=== PATIENT | female | born 1935 | race Caucasian/White ===

== ENCOUNTER 2019-04-03 21:24 | Emergency (ER) | payer MEDICARE, BC ==
[~2019-04-03] VITALS: Ht 152.4 cm; Wt 72.6 kg
[~2019-04-03 21:24] MED LIST: LISINOPRIL; PRAVASTATIN; ROBAXIN; SERTRALINE
--- OUTSIDE RECORDS SUMMARY | 2019-04-03 21:29 | XMS REPORT | Clinical Summary ---
Author Author Sean [facility] Organization [facility] Address Unknown Phone Unavailable Care Team Providers Care Rink Rat Name Role Phone Erick Casarez MD PCP Allergies Comments Active Allergy Reactions Severity Noted Date Very thin skin...tape pulls skin off Adhesive Tape-Silicones Other (See 03/24/2016 Comments) Pt reports " I have hallucinations and I was out of it for 3 days" Roberto Hope Rn Hydromorphone Other (See 05/05/2018 Comments) Medications End Date Status Medication Sig Dispensed Refills Start Date Active METOPROLOL SUCCINATE ORAL Take 25 mg by 0 mouth 2 (two) times a day. Active temazepam (RESTORIL) 15 Take 15 mg by 0 mg capsule mouth nightly as needed for sleep. Active sertraline (ZOLOFT) 100 Take 100 mg 0 MG tablet by mouth nightly. Active ascorbic acid (vitamin C) Take 1,000 mg 0 1000 MG tablet by mouth daily. Active FERROUS FUMARATE (IRON Take 25 mg by 0 ORAL) mouth daily. Active acetaminophen (TYLENOL) Take 325 mg 0 325 MG tablet by mouth every 6 (six) hours as needed for mild pain. 05/15/2018 acetaminophen-codeine Take 1 tablet 30 tablet 0 (TYLENOL WITH CODEINE #3) by mouth 8 300-30 mg per tablet every 4 (four) hours as needed for moderate pain for up to 10 days. 05/12/2018 cephalexin (KEFLEX) 500 Take 1 28 capsule 0 MG capsule capsule (500 8 mg total) by mouth 3 (three) times a day for 7 days. 05/13/2018 predniSONE (DELTASONE) 10 Take 4 tabs 20 tablet 0 mg tablet pack daily x 2 8 days, 3 tabs daily x 2 days, 2 tabs daily x 2 days, 1 tabs daily x 2 days. Active Problems Problem Noted Date Cervical radiculopathy 03/31/2016 Encounters Care Team Description Date Type Specialty Philippe Mathis MD IMPLANTATION, PROSTHESIS, COCHLEAR 05/05/2018 Surgery Plastic Surgery Tacchi, Connie Leal, GYM ATTENDANT 05/05/2018 Anesthesia Plastic Surgery Event Philippe Mathis MD 05/05/2018 Hospital Plastic Surgery Encounter after 04/02/2018 Family History Medical History Relation Name Comments Diabetes Paternal Grandmother Hypertension Sister Relation Name Status Comments Paternal Grandmother Sister Social History Date Tobacco Use Types Packs/Day Years Used Never Smoker Smokeless Tobacco: Never Used Tobacco Cessation: Counseling Given: No Alcohol Use Drinks/Week oz/Week Comments No Sex Assigned at Date Recorded Not on file Industry Job Start Date Occupation Not on file Not on file Not on file Travel End Travel History Travel Start No recent travel history available. Last Filed Vital Signs Time Taken Vital Sign Reading 05/05/2018 12:25 PM CDT Blood Pressure 153/70 05/05/2018 12:25 PM CDT Pulse 80 05/05/2018 12:15 PM CDT Temperature 37.1 C (98.7 F) 05/05/2018 12:15 PM CDT Respiratory Rate 22 05/05/2018 12:15 PM CDT Oxygen Saturation 93% - Inhaled Oxygen - Concentration 05/05/2018 6:43 AM CDT Weight 71.6 kg (157 lb 12.8 oz) 05/05/2018 6:43 AM CDT Height 152.4 cm (5') 05/05/2018 6:43 AM CDT Body Mass Index 30.82 Plan of Treatment Health Maintenance Due Date Last Done Comments SHINGLES VACCINES (#1) 1986 65+ PNEUMOCOCCAL VACCINE 2001 (1 of 2 - PCV13) INFLUENZA VACCINE 04/07/2019 Implants Device Identifier Shelf Expiration Date Model / Serial / Lot Implanted Type Area Manufactur er 11/10/2018 [id number] / [id number] / [id number] Chip Canc Allograft Leader [facility] Human N/A: N/A MUSCULOSKE 30cc 0.1-4mm - [id number] - Tissue LETAL [id number] Implants TRANSPLANT Implanted: Qty: 1 on 03/31/2016 by Rylan Smith MD 12/06/2017 [id number] / / [id number] Kit Bone Grft Lmbr Tprd 5.6ml Med Human N/A: N/A MEDTRONIC Infuse - [id number] Tissue SPINAL AND Implanted: Qty: 1 on 03/31/2016 by Implants BIOLOGICS Rylan Danielson MD 08/26/2020 [id number] / / N/A Cable Ortho Loop Double With 2crimp Spinal Posterior: DEPUY Ti Shante - [id number] Implants Spine Cervical SPINE Implanted: Qty: 1 on 03/31/2016 by Rylan Danielson MD [id number] / / Screw Oct 4.5x6mm Mountaineer - Spinal Posterior: DEPUY [id number] Implants Spine Cervical SPINE Implanted: Qty: 2 on 03/31/2016 by Rylan Danielson MD 03/03/2017 [id number] / / [id number] Cable Ortho Loop Double With 2crimp Spinal N/A: N/A DEPUY Ti Shante - [id number] Implants SPINE Implanted: Qty: 1 on 03/31/2016 by Rylan Danielson MD [id number] / / Screw Oct Med-Lat 3.5x20mm Spinal Posterior: DEPUY Mountaineer - [id number] Implants Spine Cervical SPINE Implanted: Qty: 2 on 03/31/2016 by Rylan Danielson MD [id number] / / Screw Spinal Fvrd Ang 3.5x14mm Spinal Posterior: DEPUY [employer]aineer - [id number] Implants Spine Cervical SPINE Implanted: Qty: 4 on 03/31/2016 by Rylan Danielson MD [id number] / / Screw Spinal Inr [place] Mountaineer Spinal Posterior: DEPUY - [id number] Implants Spine Cervical SPINE Implanted: Qty: 6 on 03/31/2016 by Rylan Danielson MD [id number] / / Screw Oct Inr Mountaineer - Spinal Posterior: DEPUY [id number] Implants Spine Cervical SPINE Implanted: Qty: 2 on 03/31/2016 by Rylan Danielson MD [id number] / / Plate Oc Med 37mm Mountaineer - Spinal Posterior: DEPUY [id number] Implants Spine Cervical SPINE Implanted: Qty: 1 on 03/31/2016 by Rylan Danielson MD 08/26/2020 [id number] / / N/A Oliverio Oct P-Bnt [id number] Mountaineer Spinal Posterior: DEPUY - [id number] Implants Spine Cervical SPINE Implanted: Qty: 2 on 03/31/2016 by Rylan Danielson MD 03/23/2020 [id number] / [id number] / N/A Cochlear Nucleus [id number] Cochlear Surgical Right: Ear COCHLEAR Implant With Slim Straight Implants - [place] Electrode Facial and Implanted: Qty: 1 on 05/05/2018 by Ear/Nose/T Philippe Mathis MD hroat (ENT) Procedures Comments Procedure Name Priority Date/Time Associated Diagnosis VA AN ELECTIVE Routine 05/05/2018 ENDOTRACHEAL AIRWAY 8:21 AM CDT Procedure Note - Connie Perez, GYM ATTENDANT - 05/05/2018 8:21 AM CDT Airway Date/Time: 05/05/2018 8:10 AM Performed by: CONNIE PEREZ Authorized by: LISA LITTLE Location: OR Urgency: Elective Difficult Airway: No Anesthesio logist: LISA LITTLE Resident/C RNA/AA: CONNIE PEREZ Performed by: resident/C RNA/AA Preoxygena dawson with 100% O2: Yes Mask Ventilatio n: Assisted mask Final Airway Type: Endotrache al airway Final Endotrache al Airway: ETT Cuffed: Yes Technique Used: Video laryngosco py (Glidescop e size 3 blade) Devices/Me thods Used in Placement: Intubatin g stylet Insertion Site: Oral ETT Size (mm): 7.0 Measured from: Teeth ETT to Teeth (cm): 21 Placement Verified by: CO2 detection, direct visualizat ion and equal breath sounds Laryngosco pic view: Grade I - full view of glottis Number of Attempts at Approach: 2 Eyes taped immediatel y after LOC; Easy mask ventilatio n with 8mm OPA; x1 attempt with Major 2 grade 3 view; x1 attempt with glidescope ; grade iia view; atraumatic intubation through open vocal cords; (+) chest rise& ETCO2; oral structures intact as per pre op IMPLANTATION, PROSTHESIS, 05/05/2018 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 POC sodium 142 135 - 148 mmol/L [facility] DEPARTMENT OF PATHOLOGY AND GENOMIC MEDICINE POC potassium 4.6 3.5 - 5.0 mmol/L [facility] DEPARTMENT OF PATHOLOGY AND GENOMIC MEDICINE POC hematocrit 40 37 - 47 % [facility] DEPARTMENT Comment: OF PATHOLOGY Meter ID: [id number] AND GENOMIC Computer Forensic Specialist: Stephon PICKETT POC glucose 83 65 - 99 mg/dL [facility] DEPARTMENT OF PATHOLOGY AND GENOMIC MEDICINE Specimen Performing Organization Address City/[facility] [place] Phone Number [facility] DEPARTMENT OF [address] [place] [address] PATHOLOGY AND GENOMIC MEDICINE * ECG 12 lead (05/05/2018 7:17 AM CDT) Ventricular 64 [facility] rate Atrial rate 64 [facility] VA interval 166 [facility] QRSD interval 78 [facility] QT interval 406 [facility] QTC interval 418 [facility] P axis 1 33 [facility] QRS axis 1 34 [facility] T wave axis 33 [facility] MUSE EKG impression Normal sinus rhythm-Possible [facility] MUSE Left atrial enlargement-Borderline ECG-In automated comparison with ECG of 05-MAY-2018 07:17,-No significant change was found- Specimen Performing Organization Address City/[facility]/Zipcode Phone Number [facility] [address] [place] [address] after 04/02/2018 Insurance Type Payer Benefit Subscriber ID Effective Phone Address Plan / Dates Group Medicare MEDICARE MEDICARE xxxxxxxxxxx 2001-P [place], [place] A AND resent [place] B [facility] xxxxxxxxx 2016-P [place] HMO BCBS [place] xxxxxxxxxxxx 2017-P CT [place] resent AREA/HMO BLUE ESSENTIALS Advance Directives Patient has advance care planning documents on file. For more information, quentin bermudez contact: Sean Giles [address] [place] [address]
--- OUTSIDE RECORDS SUMMARY | 2019-04-03 21:29 | XMS REPORT ---
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 Allergies, Adverse Reactions, Alerts Allergy Name Allergy Type Status Severity Reaction(s) Onset Date Inactive Date Treating Clinician Comments adhesive DA Active SD 2019-03-29 00:00:00 hydromorphone DA Active 2019-03-29 00:00:00 epinephrine DA Active SV 2019-03-28 00:00:00 codeine DA Active SD 2019-03-15 00:00:00 epinephrine DA Active SV 2019-03-15 00:00:00 adhesive DA Active SD 2019-03-15 00:00:00 hydromorphone DA Active SV 2019-03-15 00:00:00 codeine DA Active SD 2017-10-22 00:00:00 epinephrine DA Active SV 2017-10-22 00:00:00 adhesive DA Active SD 2017-10-22 00:00:00 hydromorphone DA Active SV 2017-10-22 00:00:00 Medications This patient has no known medications. Results Test Description Test Time Test Comments Text Results Atomic Results Result Comments - XR FLUORO FOR SPINE INJ 2019-03-30 11:07:00 Patient Name: KIMBERLY SUNG Unit No: [id number] EXAMS: CPT CODE: [id number] XR FLUORO FOR SPINE INJ 00274 CERVICAL FACET DIAGNOSTIC INJECTION REFERRAL PHYSICIAN: None Preoperative diagnosis: Cervicalgia Postoperative diagnosis:Symptomatic degenerative bilateral C4-5, right C6-C7 and right C7-T1 degenerative facets Procedure performed: Fluoroscopically guided needle localization of the bilateral C4-5, right C6-7 and right C7-T1 facets with arthrograms and diagnostic injection of local anesthetic and steroid. Findings:Moderate to marked degeneration was seen at all joints with moderate joint hypertrophy bilaterally at C4-5. Aspiration was negative. Provocation was negative. Anesthetic response was positive with the patient noting relief of her cervicalgia. Preinjection VAS 5/10. Postinjection VAS 0/10. Steroid response pending follow-up. Estimated blood loss: Minimal Anesthesia: TIVA Complications: None Details of procedure: After obtaining stable vital signs, informed consent and IV access, with no contraindications to proceeding, the patient was taken to the operating room and placed in a prone position with all extremities padded and appropriate monitors placed. The patient was sterilely prepped and draped over the cervical spine. Using fluoroscopic visualization the insertion sites were marked for a posterior paravertebral approaches and using standard technique, a 26-gauge needle was inserted into each joint capsule without paresthesias. Aspiration was negative. Isovue-300 contrast 0.2 mL was injected to produce each arthrogram. There were no signs of intravascular or intrathecal uptake. Bupivacaine 0.75% 0.5 mL with lidocaine 4% 0.25 mL and triamcinolone 10 mg was then injected incrementally with frequent negative aspirations at each joint. There were no signs of intravascular or intrathecal uptake. The patient's vital signs remained stable. All needles were removed and the patient was taken to the PACU in good condition. at 1107 Reported and signed by: Oz Schwartz M.D. CC: Oz Schwartz MD Technologist: TOREY NIETO RT(R) Transcribed D/ (1107) Russel.MTRylan [facility] NAME: KIMBERLY SUNG [facility] [address] [facility] PHYS: Oz Cisse MD [place], [place] [address] : 1935 AGE: 83 SEX: F LOC: CHRIS PHONE #: [phone] EXAM DATE: 03/29/2019 STATUS: [facility] FAX #: [phone] RAD #: D/C DT PAGE 1 Signed Report Patient Name: KIMBERLY SUNG Unit No: [id number] EXAMS: CPT CODE: [id number] XR FLUORO FOR SPINE INJ 48490 <Continued> Orig Print D/T: S: 03/30/2019 (1110) [facility] NAME: KIMBERLY SUNG [address] [facility] PHYS: Oz Cisse MD [place], [place] [address] : 1935 AGE: 83 SEX: F LOC: CHRIS PHONE #: [phone] EXAM DATE: 03/29/2019 [place] [facility] [place] #: [phone] RAD #: D/C DT PAGE 2 Signed Report - XR FLUORO FOR SPINE INJ 2019-03-15 19:34:00 Patient Name: KIMBERLY SUNG Unit No: [id number] EXAMS: CPT CODE: [id number] XR FLUORO FOR SPINE INJ 18905 LUMBAR DISCOGRAM AND INTRADISCAL INJECTION REFERRING PHYSICIAN: None PREOPERATIVE DIAGNOSIS: Discogenic Low Back Pain POSTOPERATIVE DIAGNOSIS: Symptomatic markedly degenerative discs above prior L5-S1 fusion PROCEDURE PERFORMED: 1. Fluoroscopically guided needle localization of the L1-2, L2-3, L3-4 and L4-5 discs with provocative discography and therapeutic intradiscal injection of local anesthetic and steroid. FINDINGS: Diffuse annular degeneration was seen at all levels with left convex scoliosis and marked loss of disc space height. Provocation with injection was partially concordant for usual pain at L2-3, L3-4 and L4-5. Anesthetic response was positive with the patient noting relief of her low back pain. Preinjection VAS 8/10. Postinjection VAS 0/10. Steroid response pending follow-up. ANTIBIOTIC: Cefazolin IV and intradiscal. ESTIMATED BLOOD LOSS: Minimal ANESTHESIA: TIVA COMPLICATIONS: None DETAILS OF PROCEDURE: After obtaining stable vital signs, informed consent and IV access, with no contraindications to proceeding, the patient received preoperative antibiotics and was taken to the fluoroscopy suite where the patient was placed in a prone position with all extremities padded and appropriate monitors placed. The patient was sterilely prepped and draped over the lumbosacral spine. Under fluoroscopic visualization the selected discs were visualized and the insertion sites were marked for paramedian approaches. Using standard double needle no- touch technique, a 20 gauge spinal introducer needle was advanced to the level of the facets and a curved 25-gauge needle was then passed through the introducer and advanced into the center of each disc without paresthesias. Isovue 300 contrast 0.2 ml with [id number] mg/mL 0.2 ml was then injected to produce each discogram. Bupivacaine 0.75% 0.25 mL with lidocaine 4% 0.5 ml with triamcinolone 20 mg was then injected, provocation was recorded and the needles were removed. There were no signs of intravascular or intrathecal uptake. The patient's vital signs remained stable. The patient was taken to the PACU in good condition. [facility] NAME: KIMBERLY SUNG MEGHAN [address] [facility] PHYS: Oz Cisse MD [place], [place] [address] : 1935 AGE: 83 SEX: F LOC: CHRIS PHONE #: [phone] EXAM DATE: 03/15/2019 [place] [facility] [place] #: [phone] RAD #: D/C DT PAGE 1 Signed Report (CONTINUED) Patient Name: KIMBERLY SUNG MEGHAN Unit No: [id number] EXAMS: CPT CODE: [id number] XR FLUORO FOR SPINE INJ 70671 <Continued> at 1934 Reported and signed by: Oz Schwartz M.D. CC: Technologist: Carol Case(R) Transcribed D/ (1933) Russel.[facility] NAME: ANA LILIAKIMBERLY [facility]RISTIANSON [address] [facility] PHYS: Oz Cisse MD [place], [place] [address] : 1935 AGE: 83 SEX: F LOC: CHRIS PHONE #: [phone] EXAM DATE: 03/15/2019 [place] [facility] [place] #: [phone] RAD #: D/C DT PAGE 2 Signed Report Patient Name: KIMBERLY SUNG Unit No: [id number] EXAMS: CPT CODE: [id number] XR FLUORO FOR SPINE INJ 80495 <Continued> Orig Print D/T: S: 03/15/2019 (1935) [facility] NAME: KIMBERLY SUNG [address] [facility] PHYS: Oz Cisse MD [place], [place] [address] : 1935 AGE: 83 SEX: F LOC: Y.LILIAN PHONE #: [phone] EXAM DATE: 03/15/2019 STATUS: REG [facility] FAX #: [phone] RAD #: D/C DT PAGE 3 Signed Report - XR L-SPINE W/BEND VIEW 2019-03-08 11:00:00 Patient Name: KIMBERLY SUNG Unit No: [id number] EXAMS: CPT CODE: [id number] XR L-SPINE W/BEND VIEW 53385 COMPARISON: Concurrent CT. IMAGES PROVIDED: 7 FINDINGS: Marked leftward curvature of the lumbar spine is centered at L2. L5-S1 posterior instrumented fusion is present without gross complication. Grade 1-2 spondylolisthesis of L5-S1 is noted as well as grade 1 spondylolisthesis of L4-L5. No abnormal motion is seen with flexion/extension. Marked disc degeneration is greatest at L2-L3 and L3-L4. Extensive lumbar facet hypertrophy. Moderate bilateral cingulate joint degenerative change. Hip joints are maintained. Cholecystectomy clips are present. IMPRESSION: Postoperative lumbar spine with advanced multilevel spondylosis. No evidence of dynamic instability. at 1100 Reported and signed by: Pedro Dickson M.D. CC: Oz Schwartz MD Technologist: Cindy James, RT.(R) Transcribed D/ (1099) Giovany [facility] NAME: KIMBERLY SUNG [address] [facility] PHYS: Oz Cisse MD : 1935 AGE: 83 SEX: F [place], [place] [address] LOC: Y.MRI PHONE #: [phone] EXAM DATE: 03/03/2019 STATUS: DEP [facility] FAX #: [phone] RAD #: D/C DT PAGE 1 Signed Report Patient Name: KIMBERLY SUNG Unit No: [id number] EXAMS: CPT CODE: [id number] XR L-SPINE W/BEND VIEW 08571 <Continued> Orig Print D/T: S: 03/08/2019 (1103) [facility] NAME: KIMBERLY SUNG [address] [facility] PHYS: Oz Cisse MD : 1935 AGE: 83 SEX: F [place], [place] [address] LOC: Y.MRI PHONE #: [phone] EXAM DATE: 03/03/2019 STATUS: [facility] FAX #: [phone] RAD #: D/C DT PAGE 2 Signed Report NM BONE SPECT SCAN 2019-03-03 16:00:55 CLINICAL INDICATION: M51.36 Other intervertebral disc degeneration, lumbar ybrgggT22.817MODALITY: Discovery NM/CT 670TECHNIQUE: 25 mCi Tc 99m MDP are injected IV. After a suitable time delay, whole body imaging images were obtained. SPECT imaging of the cervical and lumbar spine is performed with computer and physician-assisted 2-D and 3-D reconstruction. Co-registered low dose limited diagnostic CT images are obtained at the level of SPECT imaging.Computed Tomography Dose Index: 5.44 mGy.FINDINGS:COMPARISON: Fusion CT exam.CT Comments: none.Symmetric bilateral renal function is observed.Symmetric arthritic uptake is noted at the shoulders, moderate bilateral wrist uptake is seen. Moderate - severe activity is noted at the left patellofemoral joint. Mild to moderate bilateral medial knee com partment, left lateral knee compartment, right ankle activity is otherwise most conspicuous.SPECT CT fusion imaging of the lumbar spine is reviewed. Moderate, most intense uptake is demonstrated at the central and left L3-4 intervertebral disc extending down the left lateral L4 vertebral body margin. Moderate levoscoliosis of the lumbar spine is seen. Global fusion is noted at L5-S1. Moderate uptake is also noted at the left L4-[address] fusion imaging of the cervical spine demonstrates moderate midline uptake to be present at C4-5, C5-6 with mild to moderate uptake present at the C3-4 level. Surgical hardware consistent with posterior fusion is present. Moderate symmetric uptake is noted at the C4-5 facet, moderate - severe uptake is present at the right C6-7 facet and right C7-T1 costovertebral junction.IMPRESSION:See comments above.PQRS 147: 3570F - CT L-SPINE W/O CONTRAST 2019-03-03 15:20:00 Patient Name: KIMBERLY SUNG Unit No: [id number] EXAMS: CPT CODE: [id number] CT L-SPINE W/O CONTRAST 30696 DIAGNOSIS: 1. At L1-2 there is endplate spur formation and disc bulging lateralizing 4 mm into the left neural foramen. Moderate to marked right foraminal narrowing is seen with moderate left-sided stenosis. Mild narrowing of the canal is seen. 2. At L2-3 there is endplate spur formation and disc bulging with moderate to marked foraminal narrowing and mild left-sided stenosis. Moderate canal stenosis is seen with facet and ligamentum flavum hypertrophic and degenerative change. 3. At L3-4 there is endplate spur formation and disc bulging with marked left foraminal narrowing and mild right-sided stenosis. Mild narrowing of the canal is seen with decompression. 4. At L4-5 there is solid left posterior lateral fusion without right-sided effusion. A postsurgical grade 1 spondylolisthesis is seen without a focal disc abnormality. Marked left foraminal narrowing is seen without right-sided stenosis. Decompression of the canal has been performed. 5. At L5-S1 there is a postsurgical grade 2 spondylolisthesis with moderate left foraminal narrowing and moderate to marked right-sided stenosis. Pedicles screws are present without evidence for fusion. The patient is status post discectomy and graft. Decompression of the canal has been performed. COMMENT: COMPARISON: No prior exams available. Scans were performed from L1 to S1 and reconstructions were obtained. Postsurgical changes are as noted. Disc configurations are as described. Spondylitic changes are as noted. There is a scoliosis convex left. The description these findings assumes a normal count of 5 lumbar type vertebra. at 1520 Reported and signed by: Philippe Velazquez MD CC: Oz Schwartz MD Technologist: Curt Forte,R T(R) CTDI: DLP: 0 Trnscrpt: 03/03/2019 (1330) DylonJCL [facility] NAME: KIMBERLY SUNG [address] [facility] PHYS: Oz Cisse MD : 1935 AGE: 83 SEX: F [place] [address] LOC: Y.MRI PHONE #: [phone] EXAM DATE: 03/03/2019 STATUS: REG CLI FAX #: [phone] RAD #: D/C DT PAGE 1 Signed Report Patient Name: KIMBERLY SUNG Unit No: [id number] EXAMS: CPT CODE: [id number] CT L-SPINE W/O CONTRAST 17457 <Continued> Orig Print D/T: S: 03/03/2019 (1701) [facility] NAME: KIMBERLY SUNG [address] [facility] PHYS: Oz Cisse MD : 1935 AGE: 83 SEX: F [place] [address] LOC: Y.MRI PHONE #: [phone] EXAM DATE: 03/03/2019 STATUS: REG CLI FAX #: [phone] RAD #: D/C DT PAGE 2 Signed Report NM BONE SPECT SCAN Addendum created at 08/07/2017 1:14:43 PM:Addendum:Described cervical uptake is most prominent at the right C5-6, left C6-7 and right C7-T1 (approximate) facet joints.Addendum by: Davon Herman [facility]: dx: m54.2, m47.817, cervicalgia, spondyls w/o, myelopathy or radiculopath of the lumbosacral region, chronic pain, broken ribs and rt foot beforeMODALITY: [email or web address] dual head gamma cameraTECHNIQUE: 25 mCi Tc 99m MDP are injected IV. After a suitable time delay, whole body imaging images were obtained. SPECT imaging of the lumbar spine is performed with computer and physician-assisted 2-D and 3-D reconstruction.FINDINGS:COMPARISON: Lumbar spine series performed 07/27/2017.Moderate levoscoliosis is centered at L2. There are five lumbar type vertebra present. Grade 2 spondylolisthesis of L5 is visible. Trans pedicle screws are noted with global fusion at L5-S1. There is multilevel disc space narrowing observed. Moderate spondylosis is noted at L2-3, L3-4 intervertebral discs. Surgical clips are noted within the upper abdomen. Vacuum disc noted at L3-4.Symmetric bilateral renal function is observed.Mild arthritic changes are noted at the acromioclavicular and glenohumeral joints bilaterally. There is moderate - severe uptake projecting over the lower cervical spine is most prominent right C5-6, left C6-7 and right C7-T1 (approximate). There is moderately intense uptake noted at the left patellofemoral joint. Mild to moderate uptake is seen at the medial compartment right knee and right ankle/calcaneus.SPECT imaging of the lumbar spine demonstrates mild to moderate right lateral L1-2 intervertebral disc, moderate right lateral L2-3 intervertebral disc, mild to moderate left L3-4 intervertebral disc, moderate left lateral L4-5 intervertebral disc uptake. There is mild to moderate left L4-5 facet localization present. Mild to moderate right L1-2 and right L2-3 facet localization is seen. There is generally increased uptake noted within the SI joints, focal moderate uptake is seen at the left superior SI joint level.
[2019-04-03 22:05] LABS: BASOPHILS % 0.4 % (0.0-1.0); EOSINOPHILS # (AUTO) 0.1 (0.0-0.4); EOSINOPHILS % 0.6 % (0.0-6.0); HEMATOCRIT 41.6 % (34.2-44.1); HEMOGLOBIN 13.8 g/dL (12.0-16.0); LYMPHOCYTES # (AUTO) 1.3 (1.0-3.2); LYMPHOCYTES % 16.9 % (18.0-39.1); MEAN CORPUSCULAR HEMOGLOBIN 32.9 pg (28-32); MEAN CORPUSCULAR HGB CONC 33.2 g/dL (31-35); MEAN CORPUSCULAR VOLUME 99.3 fL (81-99); MONOCYTES # (AUTO) 0.5 (0.2-0.8); MONOCYTES % 6.8 % (4.4-11.3); NEUTROPHILS # (AUTO) 5.9 (2.1-6.9); PLATELET COUNT 160 x10e3/uL (140-360); RED BLOOD COUNT 4.19 x10e6/uL (3.6-5.1); RED CELL DISTRIBUTION WIDTH 14.4 % (11.7-14.4)
[2019-04-03] MEDS ORDERED: DIATRIZOATE MEGL/DIATRIZOA SOD 30 ML BTL PO ONE (22:16)
[2019-04-03 22:22] LABS: BILIRUBIN,URINE NEGATIVE (NEGATIVE); CLARITY,URINE CLEAR (CLEAR); KETONES,URINE NEGATIVE (NEGATIVE); LEUKOCYTE ESTERASE ,URINE TRACE (NEGATIVE); NITRITE,URINE NEGATIVE (NEGATIVE); PROTEIN,URINE DIPSTICK NEGATIVE (NEGATIVE); URINE UROBILINOGEN 0.2 mg/dL (0.2 - 1)
[2019-04-03 22:24] LABS: COLOR,URINE YELLOW (YELLOW)
[2019-04-03] MEDS ORDERED: METOPROLOL TART50 MG PO (22:25)
[2019-04-03] MEDS ORDERED: SERTRALINE HCL100 MG PO (22:25)
[2019-04-03 22:27] LABS: ALANINE AMINOTRANSFERASE 66 IU/L (0-55); ALBUMIN 3.8 g/dL (3.5-5.0); ALBUMIN/GLOBULIN RATIO 1.1 (0.8-2.0); ALKALINE PHOSPHATASE 88 IU/L (40-150); AMYLASE 125 U/L (25-125); ANION GAP 17.5 mmol/L (8-16); BLOOD UREA NITROGEN 29 mg/dL (7-26); BUN/CREATININE RATIO 24 (6-25); CALCIUM 10.3 mg/dL (8.4-10.2); CARBON DIOXIDE 23 mmol/L (22-29); CHLORIDE 105 mmol/L (98-107); CREATINE KINASE 41 IU/L (29-168); CREATININE, SERUM 1.22 mg/dL (0.57-1.11); EST GLOMERULAR FILTRATION RATE 42 ML/MIN (60-); GLUCOSE 105 mg/dL (74-118); LIPASE 90 U/L (8-78); POTASSIUM 4.5 mmol/L (3.5-5.1); SODIUM 141 mmol/L (136-145)
[2019-04-03] MEDS ORDERED: LOSARTAN-HCTZ1 EAC2 PO (22:28)
[2019-04-03] MEDS ORDERED: TIZANIDINE HCL4 MG PO (22:28)
[2019-04-03] MEDS: ONDANSETRON HCL INJ 2MG/ML 2ML 2 MG/ML VIAL IV STA (22:36)
[2019-04-03 22:56] LABS: BACTERIA,URINE MODERATE /HPF; EPITHELIAL CELLS,URINE FEW /LPF; RENAL EPITHELIAL CELLS,URINE FEW; TRANSITIONAL EPI CELLS,URINE FEW
--- NOTE | 2019-04-04 00:21 | Diagnostic Imaging Report ---
EXAM: CT Abdomen and Pelvis WITHOUT contrast INDICATION: ^ABD PAIN,VOMITING ^[id number] ^2315 ^Y COMPARISON: None. TECHNIQUE: Abdomen and pelvis were scanned utilizing a multidetector helical scanner from the lung base to the pubic symphysis without administration of IV contrast. Absence of intravenous contrast decreases sensitivity for detection of focal lesions and vascular pathology. Coronal and sagittal reformations were obtained. Routine protocol was performed. IV CONTRAST: None ORAL CONTRAST: Gastrografin COMPLICATIONS: None RADIATION DOSE: Total DLP: 485.55 mGy*cm Estimated effective dose: (DLP x 0.015 x size factor) mSv CTDIvol has been reviewed. It is below the limits set by the Radiation Protocol Committee (RPC). FINDINGS: LINES and TUBES: None. LOWER THORAX: Bibasilar subsegmental atelectasis. HEPATOBILIARY: Unenhanced liver is unremarkable. No biliary ductal dilation. GALLBLADDER: Surgically absent. SPLEEN: No splenomegaly. PANCREAS: No focal masses or ductal dilatation. ADRENALS: No adrenal nodules KIDNEYS/URETERS: Right nephrectomy. Multiple left renal hypodense lesions as well as an exophytic hyperdense inferior pole lesion which cannot be fully characterized on this unenhanced study, but are probably cysts. GI TRACT: No abnormal distention, wall thickening, or evidence of bowel obstruction. Appendix is absent. Evidence of gastric bypass surgery. PELVIC ORGANS/BLADDER: Hysterectomy. Bladder is unremarkable. Pelvic phleboliths. LYMPH NODES: No lymphadenopathy. VESSELS: Unremarkable. PERITONEUM / RETROPERITONEUM: No free air or fluid. BONES: Lumbar spine scoliosis with multilevel advanced degenerative changes. L5-S1 posterior spinal fusion. Intact hardware. Grade 1 or 2 L5-S1 spondylolisthesis. SOFT TISSUES: Partially seen peripherally calcified bilateral breast implants. Wide neck supraumbilical ventral hernia with neck measuring 8.2 cm (series 2, image 33). A segment of transverse colon partially enters the hernia sac. No evidence of incarceration or bowel obstruction. Bilateral gluteal injection granulomas. Small fat-containing left inguinal hernia. IMPRESSION: 1. Limited study without intravenous contrast. 2. Small but wide neck supraumbilical ventral hernia with a segment of transverse colon, partially extending to the hernia neck. No evidence of incarceration. 3. Recommend nonurgent renal ultrasound for evaluation of the left renal parenchyma. Signed by: Dr. Deondre Cormier MD on 04/04/2019 12:18 AM
[2019-04-04 00:33] VITALS: BP 136/82
== END 2019-04-04 00:45 | disposition home or self-care (01) ==
LOC: ER 21:24
DX: K85.20 Alcohol induced acute pancreatitis without necrosis or infection (principal); K29.20 Alcoholic gastritis without bleeding; I10 Essential (primary) hypertension; E78.5 Hyperlipidemia, unspecified
CPT/HCPCS: 36415; 74176; 80053; 81001; 82150; 82550; 82553; 83690; 84484; 85025; 93005; 96374; 99284; J2405

== ENCOUNTER 2021-04-08 12:20 | Inpatient (IN) | payer MEDICARE, BC ==
[~2021-04-08] VITALS: Ht 154.9 cm; Wt 72.6 kg
[~2021-04-08 12:20] MED LIST changes: +LOSARTAN-HCTZ1 EAC2 PO; +METOPROLOL TART50 MG PO; +SERTRALINE HCL100 MG PO; +TIZANIDINE HCL4 MG PO
[2021-04-08] MEDS ORDERED: SODIUM CHLORIDE 0.9% 500ML 500 ML IV STA (12:40)
[2021-04-08] MEDS ORDERED: ONDANSETRON HCL INJ 2MG/ML 2ML 2 MG/ML VIAL IV STA (12:40)
[2021-04-08 13:18] LABS: BASOPHILS % 0.8 % (0.0-1.0); EOSINOPHILS % 1.1 % (0.0-6.0); HEMATOCRIT 38.5 % (34.2-44.1); HEMOGLOBIN 11.7 g/dL (12.0-16.0); LYMPHOCYTES # (AUTO) 0.8 (1.0-3.2); LYMPHOCYTES % 22.3 % (18.0-39.1); MEAN CORPUSCULAR HEMOGLOBIN 28.1 pg (28-32); MEAN CORPUSCULAR HGB CONC 30.4 g/dL (31-35); MEAN CORPUSCULAR VOLUME 92.3 fL (81-99); MONOCYTES # (AUTO) 0.2 (0.2-0.8); MONOCYTES % 6.5 % (4.4-11.3); NEUTROPHILS # (AUTO) 2.5 (2.1-6.9); NEUTROPHILS % 67.9 % (38.7-80.0); PLATELET COUNT 169 x10e3/uL (140-360); RED BLOOD COUNT 4.17 x10e6/uL (3.6-5.1)
[2021-04-08 13:31] LABS: CLARITY,URINE CLEAR (CLEAR); COLOR,URINE YELLOW (YELLOW); KETONES,URINE 1+ (NEGATIVE); LEUKOCYTE ESTERASE ,URINE NEGATIVE (NEGATIVE); NITRITE,URINE NEGATIVE (NEGATIVE); PROTEIN,URINE DIPSTICK 2+ (NEGATIVE)
[2021-04-08 13:36] LABS: ALBUMIN/GLOBULIN RATIO 1.1 (0.8-2.0); ANION GAP 17.1 mmol/L (8-16); CALCIUM 9.7 mg/dL (8.4-10.2); CREATININE, SERUM 1.04 mg/dL (0.57-1.11); POTASSIUM 4.1 mmol/L (3.5-5.1)
[2021-04-08 13:43] LABS: CREATINE KINASE MB 1.1 ng/mL (0-5.0)
[2021-04-08 13:47] LABS: BACTERIA,URINE FEW /HPF; EPITHELIAL CELLS,URINE FEW /LPF
[2021-04-08] MEDS ORDERED: IOPAMIDOL 370 MG/ML 200 ML INFUS..BTL INJ ONE (13:55)
[2021-04-08] MEDS ORDERED: SODIUM CHLORIDE 0.9% 50ML 50 ML ONE (13:55)
[2021-04-08] MEDS ORDERED: FENTANYL CITRATE/PF 100MCG/2 ML INJ IV ONE ×2 (14:30→16:45)
[2021-04-08] MEDS ORDERED: ONDANSETRON HCL INJ 2MG/ML 2ML 2 MG/ML VIAL IV PRN (15:00)
[2021-04-08] MEDS ORDERED: PIPERACILLIN/TAZOBACTAM 3.375 GM in SODIUM CHLORIDE 0.9% 50ML 50 ML IV ONE (15:00)
[2021-04-08] MEDS ORDERED: SODIUM CHLORIDE FLUSH 10 ML SYR INJ PRN (15:00)
[2021-04-08 20:09] VITALS: BP 173/96
[2021-04-08 20:30] VITALS: BP 173/96
[2021-04-08] MEDS ORDERED: HYDRALAZINE HCL 20 MG/ML VIAL IV PRN (21:30)
[2021-04-08] MEDS ORDERED: CARAFATE1 GM PO (22:04)
[2021-04-08] MEDS ORDERED: PANTOPRAZOLE SO40 MG PO (22:04)
[2021-04-08] MEDS ORDERED: LEVOTHYROXINE50 MCG PO (22:04)
[2021-04-08] MEDS: ACETAMINOPHEN 325 MG TAB PO PRN (23:47)
[2021-04-09] VITALS (7 sets, daily range): BP systolic 128–162; BP diastolic 43–93
[2021-04-09] MEDS: LEVOTHYROXINE SODIUM 50 MCG TAB PO SCH ×2 (03:15→05:39)
[2021-04-09] MEDS: ACETAMINOPHEN 325 MG TAB PO PRN (03:44)
[2021-04-09] MEDS: METOPROLOL TARTRATE 50 MG TAB PO SCH ×3 (08:24→16:29)
[2021-04-09] MEDS: PANTOPRAZOLE SOD 40 MG TABEC PO SCH (08:24)
[2021-04-09] MEDS ORDERED: HYDROMORPHONE 1MG/1ML INJ IV STA (11:46)
[2021-04-09] MEDS ORDERED: HYDROMORPHONE 1MG/1ML INJ IV PRN (12:30)
[2021-04-09] MEDS ORDERED: ONDANSETRON HCL INJ 2MG/ML 2ML 2 MG/ML VIAL IV PRN (12:45)
[2021-04-09] MEDS: SUCRALFATE 1 GM TAB PO SCH ×2 (16:22→16:29)
[2021-04-09] MEDS: SERTRALINE HCL 100 MG TAB PO SCH (20:27)
[2021-04-10] VITALS (10 sets, daily range): BP systolic 126–169; BP diastolic 61–74
[2021-04-10] MEDS: ACETAMINOPHEN 325 MG TAB PO PRN (00:28)
[2021-04-10 01:59] LABS: FERRITIN 13.03 ng/mL (4.63-204.00)
[2021-04-10] MEDS: LEVOTHYROXINE SODIUM 50 MCG TAB PO SCH (06:07)
[2021-04-10] MEDS: SUCRALFATE 1 GM TAB PO SCH ×3 (07:30→17:01)
[2021-04-10] MEDS: PANTOPRAZOLE SOD 40 MG TABEC PO SCH (09:00)
[2021-04-10] MEDS: METOPROLOL TARTRATE 50 MG TAB PO SCH ×2 (09:00→17:02)
[2021-04-10] MEDS ORDERED: CYANOCOBALAMIN INJ 1,000 MCG/ML VIAL IM ONE (14:00)
[2021-04-10] MEDS ORDERED: ONDANSETRON HCL 4 MG ORAL DISINTEGRATING TAB PO PRN (14:15)
[2021-04-10] MEDS ORDERED: LIDOCAINE HCL 2% LOCAL INJ 5 ML SDV VIAL INJ ONE (17:42)
[2021-04-10] MEDS ORDERED: PROPOFOL IV EMULSION 10 MG/ML 20 ML VIAL ONE (17:42)
[2021-04-10] MEDS: SERTRALINE HCL 100 MG TAB PO SCH (20:27)
[2021-04-11] VITALS: BP 149/74
[2021-04-11 04:00] VITALS: BP 155/65
[2021-04-11 04:58] LABS: BASOPHILS % 0.9 % (0.0-1.0); EOSINOPHILS # (AUTO) 0.1 (0.0-0.4); EOSINOPHILS % 4.8 % (0.0-6.0); HEMATOCRIT 32.2 % (34.2-44.1); HEMOGLOBIN 9.6 g/dL (12.0-16.0); LYMPHOCYTES # (AUTO) 0.8 (1.0-3.2); LYMPHOCYTES % 35.2 % (18.0-39.1); MEAN CORPUSCULAR HEMOGLOBIN 28.2 pg (28-32); MEAN CORPUSCULAR HGB CONC 29.8 g/dL (31-35); MEAN CORPUSCULAR VOLUME 94.4 fL (81-99); MONOCYTES # (AUTO) 0.2 (0.2-0.8); MONOCYTES % 8.7 % (4.4-11.3); NEUTROPHILS # (AUTO) 1.1 (2.1-6.9); NEUTROPHILS % 48.7 % (38.7-80.0); PLATELET COUNT 125 x10e3/uL (140-360); RED BLOOD COUNT 3.41 x10e6/uL (3.6-5.1); RED CELL DISTRIBUTION WIDTH 14.8 % (11.7-14.4)
[2021-04-11] MEDS: LEVOTHYROXINE SODIUM 50 MCG TAB PO SCH (05:07)
[2021-04-11 05:37] LABS: ANION GAP 12.5 mmol/L (8-16); CALCIUM 8.4 mg/dL (8.4-10.2); CREATININE, SERUM 0.77 mg/dL (0.57-1.11); MAGNESIUM 1.7 MG/DL (1.3-2.1); PHOSPHORUS 3.1 MG/DL (2.3-4.7); POTASSIUM 3.5 mmol/L (3.5-5.1)
[2021-04-11 08:04] VITALS: BP 149/68
[2021-04-11 08:12] VITALS: BP 149/68
[2021-04-11] MEDS ORDERED: CYANOCOBALAMIN INJ 1,000 MCG/ML VIAL IM SCH (09:00)
[2021-04-11] MEDS: SUCRALFATE 1 GM TAB PO SCH ×2 (09:25→11:58)
[2021-04-11] MEDS: PANTOPRAZOLE SOD 40 MG TABEC PO SCH (09:25)
[2021-04-11] MEDS: METOPROLOL TARTRATE 50 MG TAB PO SCH (09:25)
[2021-04-11 11:55] VITALS: BP 156/69
[2021-04-11] MEDS ORDERED: ONDANSETRON ODT4 MG PO (13:45)
[2021-04-11] MEDS ORDERED: ACETAMINOPHEN325 M1 PO (13:45)
== END 2021-04-11 16:28 | disposition home or self-care (01) | DRG 381 ==
LOC: ER 12:40 → ERHOLD 15:44 → MED/SURG 20:19
PROVIDERS: ADMIT Internal Medicine; ATTEND Internal Medicine
PROC: 0DB68ZX Excision of Stomach, Via Natural or Artificial Opening Endoscopic, Diagnostic (ICD-10-PCS; principal; 2021-04-08)
DX: K28.9 Gastrojejunal ulcer, unspecified as acute or chronic, without hemorrhage or perforation (principal); Q60.0 Renal agenesis, unilateral; E78.5 Hyperlipidemia, unspecified; I10 Essential (primary) hypertension; E03.9 Hypothyroidism, unspecified; M81.0 Age-related osteoporosis without current pathological fracture; Z91.81 History of falling; E66.01 Morbid (severe) obesity due to excess calories; Z68.30 Body mass index [BMI] 30.0-30.9, adult; Z20.822 Contact with and (suspected) exposure to COVID-19; K44.9 Diaphragmatic hernia without obstruction or gangrene
CPT/HCPCS: 36415; 43239; 71045; 74177; 80048; 80053; 81001; 82550; 82553; 82607; 82728; 82746; 82948; 83540; 83690; 83735; 84100; 84466; 84484; 85025; 85045; 88305; 88312; 93005; 97139; 99284; J0360; J1170; J2001; J2405; J2543; J3010; J3420; J7040; Q9967; U0002

== ENCOUNTER → 2022-12-02 | Outpatient (CLI) | payer MEDICARE, BC ==
[~2022-12-02] MED LIST changes: +ACETAMINOPHEN325 M1 PO; +CARAFATE1 GM PO; +LEVOTHYROXINE50 MCG PO; +ONDANSETRON ODT4 MG PO; +PANTOPRAZOLE SO40 MG PO
[2022-12-02 11:56] LABS: BASOPHILS % 1.1 % (0.0-1.0); EOSINOPHILS # (AUTO) 0.2 (0.0-0.4); EOSINOPHILS % 4.7 % (0.0-6.0); HEMATOCRIT 38.4 % (34.2-44.1); HEMOGLOBIN 12.2 g/dL (12.0-16.0); LYMPHOCYTES # (AUTO) 1.1 (1.0-3.2); LYMPHOCYTES % 31.3 % (18.0-39.1); MEAN CORPUSCULAR HEMOGLOBIN 32.3 pg (28-32); MEAN CORPUSCULAR HGB CONC 31.8 g/dL (31-35); MEAN CORPUSCULAR VOLUME 101.6 fL (81-99); MONOCYTES # (AUTO) 0.2 (0.2-0.8); NEUTROPHILS # (AUTO) 2.1 (2.1-6.9); NEUTROPHILS % 57.1 % (38.7-80.0); PLATELET COUNT 148 x10e3/uL (140-360); RED BLOOD COUNT 3.78 x10e6/uL (3.6-5.1); RED CELL DISTRIBUTION WIDTH 13.3 % (11.7-14.4)
[2022-12-02 12:34] LABS: ALBUMIN 3.3 g/dL (3.5-5.0); ANION GAP 12.6 mmol/L (8-16); CREATININE, SERUM 0.96 mg/dL (0.57-1.11)
[2022-12-02 12:42] LABS: POTASSIUM 2.6 mmol/L (3.5-5.1)
== END ==
LOC: RAD 11:04
PROVIDERS: ATTEND Surgery
DX: D64.9 Anemia, unspecified (principal); R10.9 Unspecified abdominal pain
CPT/HCPCS: 36415; 71046; 80053; 85025; 93005

== ENCOUNTER 2023-01-23 09:09 | Inpatient (IN) | payer MEDICARE, BC ==
[2023-01-19 11:42] LABS: BASOPHILS % 0.9 % (0.0-1.0); EOSINOPHILS # (AUTO) 0.2 (0.0-0.4); HEMATOCRIT 38.7 % (34.2-44.1); HEMOGLOBIN 12.6 g/dL (12.0-16.0); LYMPHOCYTES # (AUTO) 1.1 (1.0-3.2); LYMPHOCYTES % 31.3 % (18.0-39.1); MEAN CORPUSCULAR HEMOGLOBIN 32.1 pg (28-32); MEAN CORPUSCULAR HGB CONC 32.6 g/dL (31-35); MEAN CORPUSCULAR VOLUME 98.7 fL (81-99); MONOCYTES # (AUTO) 0.2 (0.2-0.8); MONOCYTES % 6.8 % (4.4-11.3); NEUTROPHILS # (AUTO) 1.9 (2.1-6.9); NEUTROPHILS % 55.7 % (38.7-80.0); PLATELET COUNT 97 x10e3/uL (140-360); RED BLOOD COUNT 3.92 x10e6/uL (3.6-5.1); RED CELL DISTRIBUTION WIDTH 13.2 % (11.7-14.4)
[2023-01-19 12:02] LABS: ANION GAP 10.8 mmol/L (8-16); CALCIUM 8.9 mg/dL (8.4-10.2); CREATININE, SERUM 0.86 mg/dL (0.57-1.11)
[2023-01-19 12:18] LABS: POTASSIUM 2.8 mmol/L (3.5-5.1)
[~2023-01-23] VITALS: Ht 149.9 cm; Wt 59.0 kg
[~2023-01-23 09:09] MED LIST changes: +AMLODIPINE BESYL5 MG PO; +HYDROXYZINE HCL25 MG PO; +LOSARTAN POTASS25 MG PO; +POTASSIUM CHLO10 ME1 PO
[2023-01-23] MEDS ORDERED: LACTATED RINGER'S 1,000 ML ONE (09:33)
[2023-01-23] MEDS ORDERED: BUPIVACAINE 0.5%/EPI 30 ML SDV INJ ONE (10:26)
[2023-01-23] MEDS ORDERED: FENTANYL CITRATE/PF 100MCG/2 ML INJ ONE ×2 (11:46→11:47)
[2023-01-23] MEDS ORDERED: MIDAZOLAM HCL 2 MG/2 ML VIAL ONE ×2 (11:46→11:47)
[2023-01-23] MEDS ORDERED: ROCURONIUM BROMIDE 10 MG/ML 5ML VIAL IV ONE (12:19)
[2023-01-23] MEDS ORDERED: LIDOCAINE HCL 2% LOCAL INJ 5 ML SDV VIAL INJ ONE (12:19)
[2023-01-23] MEDS ORDERED: SEVOFLURANE INHAL SOLN 250 ML PEN BTL ONE (12:19)
[2023-01-23] MEDS ORDERED: PHENYLEPHRINE HCL 1% 10 MG/ML VIAL ONE (12:19)
[2023-01-23] MEDS ORDERED: POVIDONE IODINE 0.05% 0.05 % ML PO ONE (12:19)
[2023-01-23] MEDS ORDERED: PROPOFOL IV EMULSION 10 MG/ML 20 ML VIAL ONE (12:19)
[2023-01-23] MEDS ORDERED: ONDANSETRON HCL INJ 2MG/ML 2ML 2 MG/ML VIAL IV PRN (13:15)
[2023-01-23] MEDS ORDERED: SODIUM CHLORIDE 0.9% 1000ML 1,000 ML IV SCH (13:15)
[2023-01-23] MEDS ORDERED: HYDRALAZINE HCL 20 MG/ML VIAL ONE (13:32)
[2023-01-23 14:45] VITALS: BP 180/86; PULSE 61; RESP 16; TEMP 97.9; O2SAT 98
[2023-01-23] MEDS: D5.45%NS/KCL 20MEQ 1,000 ML IV SCH (15:00)
[2023-01-23] MEDS: ACETAMINOPHEN/CODEINE 300MG - 30MG TAB PO PRN ×2 (17:12→22:21)
[2023-01-23] MEDS: METOPROLOL TARTRATE 50 MG TAB PO SCH (17:12)
[2023-01-23] MEDS ORDERED: ACETAMINOPHEN 1000 MG/100 ML IV PRN (18:00)
[2023-01-23] MEDS: LOSARTAN POTASSIUM 25 MG TAB PO SCH (20:51)
[2023-01-23] MEDS: AMLODIPINE BESYLATE 5 MG TAB PO SCH (20:51)
[2023-01-23 21:23] VITALS: BP 188/97; PULSE 75; RESP 22; TEMP 99.1; O2SAT 96
[2023-01-24] VITALS (10 sets, daily range): BP systolic 159–186; BP diastolic 78–86; PULSE 64–76; RESP 16–20; TEMP 97.6–99.1; O2SAT 92–100
[2023-01-24] MEDS: D5.45%NS/KCL 20MEQ 1,000 ML IV SCH ×2 (02:35→18:49)
[2023-01-24] MEDS: ACETAMINOPHEN/CODEINE 300MG - 30MG TAB PO PRN ×4 (04:07→17:10)
[2023-01-24] MEDS ORDERED: Morphine 4mg INJECTION 4 MG/ML INJ IV PRN (05:30)
[2023-01-24] MEDS: LEVOTHYROXINE SODIUM 50 MCG TAB PO SCH (05:41)
[2023-01-24 07:42] LABS: BASOPHILS % 0.7 % (0.0-1.0); EOSINOPHILS # (AUTO) 0.2 (0.0-0.4); EOSINOPHILS % 4.5 % (0.0-6.0); HEMOGLOBIN 11.9 g/dL (12.0-16.0); LYMPHOCYTES # (AUTO) 0.8 (1.0-3.2); LYMPHOCYTES % 14.4 % (18.0-39.1); MEAN CORPUSCULAR HEMOGLOBIN 31.6 pg (28-32); MEAN CORPUSCULAR HGB CONC 31.3 g/dL (31-35); MEAN CORPUSCULAR VOLUME 101.1 fL (81-99); MONOCYTES # (AUTO) 0.4 (0.2-0.8); MONOCYTES % 7.1 % (4.4-11.3); NEUTROPHILS # (AUTO) 3.9 (2.1-6.9); NEUTROPHILS % 72.7 % (38.7-80.0); PLATELET COUNT 113 x10e3/uL (140-360); RED BLOOD COUNT 3.76 x10e6/uL (3.6-5.1); RED CELL DISTRIBUTION WIDTH 13.2 % (11.7-14.4)
[2023-01-24 07:59] LABS: ANION GAP 10.6 mmol/L (8-16); CALCIUM 8.8 mg/dL (8.4-10.2); CREATININE, SERUM 0.88 mg/dL (0.57-1.11)
[2023-01-24 08:17] LABS: POTASSIUM 2.6 mmol/L (3.5-5.1)
[2023-01-24] MEDS ORDERED: POTASSIUM CHLORIDE 20MEQ/15ML UDC PO ONE (09:00)
[2023-01-24] MEDS ORDERED: KCL 20 MEQ PACKET/ ORAL SOLN PO ONE (09:00)
[2023-01-24] MEDS: PANTOPRAZOLE SOD 40 MG TABEC PO SCH (09:03)
[2023-01-24] MEDS: METOPROLOL TARTRATE 50 MG TAB PO SCH ×2 (09:04→17:10)
[2023-01-24] MEDS ORDERED: POTASSIUM CHLORIDE 20 MEQ TAB CR PO ONE ×2 (13:00→17:00)
[2023-01-24] MEDS: HYDROCODONE/APAP 5MG-325MG TAB PO PRN (21:56)
[2023-01-25] VITALS: BP 165/86; PULSE 61; RESP 18; TEMP 97.8; O2SAT 98
[2023-01-25 01:20] VITALS: PULSE 62; RESP 18; O2SAT 96
[2023-01-25 04:00] VITALS: BP 152/73; PULSE 60; RESP 18; TEMP 97.2; O2SAT 93
[2023-01-25] MEDS: HYDROCODONE/APAP 5MG-325MG TAB PO PRN ×2 (04:38→09:38)
[2023-01-25] MEDS: D5.45%NS/KCL 20MEQ 1,000 ML IV SCH (04:39)
[2023-01-25] MEDS: LEVOTHYROXINE SODIUM 50 MCG TAB PO SCH (05:50)
[2023-01-25 07:39] VITALS: PULSE 64; RESP 18; O2SAT 98
[2023-01-25 08:29] VITALS: BP 163/89; PULSE 70; RESP 20; TEMP 97.2; O2SAT 98
[2023-01-25 08:51] VITALS: BP 163/89; PULSE 70; RESP 20; TEMP 97.2; O2SAT 98
[2023-01-25] MEDS: METOPROLOL TARTRATE 50 MG TAB PO SCH (09:37)
[2023-01-25] MEDS: LOSARTAN POTASSIUM 25 MG TAB PO SCH (09:37)
[2023-01-25] MEDS: PANTOPRAZOLE SOD 40 MG TABEC PO SCH (09:37)
[2023-01-25] MEDS: AMLODIPINE BESYLATE 5 MG TAB PO SCH (09:38)
== END 2023-01-25 14:42 | disposition home or self-care (01) | DRG 355 ==
LOC: OR 09:09 → PACU V 13:34 → MED/SURG3 14:43
PROVIDERS: ADMIT Surgery; ATTEND Surgery
PROC: 0WUF0JZ Supplement Abdominal Wall with Synthetic Substitute, Open Approach (ICD-10-PCS; principal; 2023-01-23 11:26)
DX: K43.6 Other and unspecified ventral hernia with obstruction, without gangrene (principal); I10 Essential (primary) hypertension
CPT/HCPCS: 0223U; 36415; 71046; 80048; 84132; 85025; 93005; 94799; 96361; C1781; J0690; J2001; J2250; J2370

== ENCOUNTER 2024-12-16 08:20 | Emergency (ER) | payer MEDICARE, BC ==
[~2024-12-16] VITALS: Ht 149.9 cm; Wt 59.0 kg
[2024-12-16 09:36] LABS: BASOPHILS % 0.7 % (0.0-1.0); EOSINOPHILS # (AUTO) 0.1 (0.0-0.4); EOSINOPHILS % 2.2 % (0.0-6.0); HEMATOCRIT 37.7 % (34.2-44.1); HEMOGLOBIN 12.5 g/dL (12.0-16.0); LYMPHOCYTES # (AUTO) 1.2 (1.0-3.2); MEAN CORPUSCULAR HEMOGLOBIN 36.7 pg (28-32); MEAN CORPUSCULAR HGB CONC 33.2 g/dL (31-35); MEAN CORPUSCULAR VOLUME 110.6 fL (81-99); MONOCYTES # (AUTO) 0.3 (0.2-0.8); MONOCYTES % 7.1 % (4.4-11.3); NEUTROPHILS # (AUTO) 2.9 (2.1-6.9); NEUTROPHILS % 63.3 % (38.7-80.0); PLATELET COUNT 144 x10e3/uL (140-360); RED BLOOD COUNT 3.41 x10e6/uL (3.6-5.1); WHITE BLOOD COUNT 4.53 x10e3/uL (4.8-10.8)
[2024-12-16 10:06] LABS: ALBUMIN 3.7 g/dL (3.5-5.0); ALBUMIN/GLOBULIN RATIO 1.2 (0.8-2.0); ANION GAP 13.7 mmol/L (8-16); BILIRUBIN,TOTAL 1.3 mg/dL (0.2-1.2); CALCIUM 9.6 mg/dL (8.4-10.2); CREATININE, SERUM 1.05 mg/dL (0.57-1.11); POTASSIUM 4.7 mmol/L (3.5-5.1); TOTAL PROTEIN 6.7 g/dL (6.5-8.1)
[2024-12-16] MEDS ORDERED: IOPAMIDOL 370 MG/ML 100 ML INFUS..BTL INJ ONE (10:22)
[2024-12-16] MEDS ORDERED: DICYCLOMINE HCL20 MG PO (11:53)
[2024-12-16 12:23] VITALS: PULSE 79; RESP 14; TEMP 98; O2SAT 98
== END 2024-12-16 12:25 | disposition home or self-care (01) ==
LOC: ER 08:43
DX: R10.9 Unspecified abdominal pain (principal); R74.01 Elevation of levels of liver transaminase levels; I10 Essential (primary) hypertension; E03.9 Hypothyroidism, unspecified; E78.5 Hyperlipidemia, unspecified; K21.9 Gastro-esophageal reflux disease without esophagitis; D64.9 Anemia, unspecified; F41.9 Anxiety disorder, unspecified; F32.A Depression, unspecified; Z85.41 Personal history of malignant neoplasm of cervix uteri; Z98.84 Bariatric surgery status
CPT/HCPCS: 36415; 74177; 80053; 85025; 99284; Q9967

== ENCOUNTER → 2025-02-22 | Day surgery (SDC) | payer MEDICARE, BC ==
[~2025-02-22] MED LIST changes: +DICYCLOMINE HCL20 MG PO; +EPHEDRINE SULFATE INJ 50 MG/ML VIAL ONE; +LIDOCAINE HCL 2% LOCAL INJ 5 ML SDV VIAL INJ ONE; +MICARDIS80 MG PO; +ONDANSETRON HCL INJ 2MG/ML 2ML 2 MG/ML VIAL ONE; +PROPOFOL IV EMULSION 10 MG/ML 20 ML VIAL ONE; +ULTRAM 50MG50 MG PO
[2025-02-22] MEDS: LACTATED RINGER'S 1,000 ML ONE (07:04)
[2025-02-22 07:20] LABS: BASOPHILS % 0.4 % (0.0-1.0); EOSINOPHILS % 0.4 % (0.0-6.0); HEMATOCRIT 29.9 % (34.2-44.1); HEMOGLOBIN 9.9 g/dL (12.0-16.0); MEAN CORPUSCULAR HEMOGLOBIN 35.4 pg (28-32); MEAN CORPUSCULAR HGB CONC 33.1 g/dL (31-35); MEAN CORPUSCULAR VOLUME 106.8 fL (81-99); MONOCYTES # (AUTO) 0.7 (0.2-0.8); MONOCYTES % 6.5 % (4.4-11.3); NEUTROPHILS # (AUTO) 9.3 (2.1-6.9); NEUTROPHILS % 82.6 % (38.7-80.0); PLATELET COUNT 211 x10e3/uL (140-360); RED CELL DISTRIBUTION WIDTH 15.1 % (11.7-14.4); WHITE BLOOD COUNT 11.23 x10e3/uL (4.8-10.8)
[2025-02-22 07:39] LABS: ALBUMIN/GLOBULIN RATIO 0.8 (0.8-2.0); BILIRUBIN,TOTAL 1.3 mg/dL (0.2-1.2); CALCIUM 9.1 mg/dL (8.4-10.2); CREATININE, SERUM 1.31 mg/dL (0.57-1.11); TOTAL PROTEIN 6.7 g/dL (6.5-8.1)
[2025-02-22 09:20] VITALS: TEMP 98.2
[2025-02-22 10:15] VITALS: BP 119/69; PULSE 95; RESP 18; O2SAT 98
== END | disposition home or self-care (01) ==
LOC: OR 06:01
PROVIDERS: ATTEND Surgery
DX: K22.10 Ulcer of esophagus without bleeding (principal); K25.7 Chronic gastric ulcer without hemorrhage or perforation; D13.39 Benign neoplasm of other parts of small intestine; I10 Essential (primary) hypertension; Z98.84 Bariatric surgery status
CPT/HCPCS: 36415; 43235; 71046; 80053; 85025; 93005; J2003; J2405; J2704; J7121; 43239

== ENCOUNTER 2025-03-11 15:17 | Emergency (ER) | payer MEDICARE, BC ==
[~2025-03-11] VITALS: Ht 149.9 cm; Wt 47.6 kg
[~2025-03-11 15:17] MED LIST changes: -EPHEDRINE SULFATE INJ 50 MG/ML VIAL ONE; -LIDOCAINE HCL 2% LOCAL INJ 5 ML SDV VIAL INJ ONE; -ONDANSETRON HCL INJ 2MG/ML 2ML 2 MG/ML VIAL ONE; -PROPOFOL IV EMULSION 10 MG/ML 20 ML VIAL ONE
[2025-03-11 15:45] VITALS: TEMP 97.9
[2025-03-11] MEDS: MAGNESIUM/ALUMINUM/SIMETHICONE 30 ML UDC PO ONE (16:59)
[2025-03-11] MEDS: BELLADONNA ALK/PHENOBARBITAL 5 ML UDC PO STA (17:00)
[2025-03-11] MEDS: LIDOCAINE VISC 2% SOLN 15 ML UDC PO ONE (17:01)
[2025-03-11] MEDS: HYDROCODONE/APAP 5MG-325MG TAB PO ONE (17:01)
[2025-03-11 18:59] VITALS: PULSE 82; RESP 17; O2SAT 98
== END 2025-03-11 19:00 | disposition home or self-care (01) ==
LOC: ER 16:32
DX: R10.84 Generalized abdominal pain (principal); Z87.19 Personal history of other diseases of the digestive system; I10 Essential (primary) hypertension; E03.9 Hypothyroidism, unspecified; E78.5 Hyperlipidemia, unspecified; B19.20 Unspecified viral hepatitis C without hepatic coma; D64.9 Anemia, unspecified; K21.9 Gastro-esophageal reflux disease without esophagitis; F41.9 Anxiety disorder, unspecified; F32.A Depression, unspecified; R94.31 Abnormal electrocardiogram [ECG] [EKG]; Z98.84 Bariatric surgery status
CPT/HCPCS: 93005; 99283

== ENCOUNTER 2025-03-15 07:58 | Inpatient (IN) | payer MEDICARE, BC ==
[~2025-03-15] VITALS: Ht 149.9 cm; Wt 62.8 kg
[2025-03-15] VITALS (29 sets, daily range): BP systolic 94–148; BP diastolic 47–91; PULSE 54–99; RESP 9–21; TEMP 97.9–98.3; O2SAT 96–100
[2025-03-15] MEDS: SODIUM CHLORIDE 0.9% 1000ML 1,000 ML IV STA (08:44)
[2025-03-15] MEDS: KETOROLAC TROMETHAMINE 30 MG/ML VIAL IV STA (08:45)
[2025-03-15 08:51] LABS: BASOPHILS % 0.4 % (0.0-1.0); EOSINOPHILS % 0.4 % (0.0-6.0); LYMPHOCYTES % 9.6 % (18.0-39.1); MONOCYTES % 3.6 % (4.4-11.3); NEUTROPHILS % 84.4 % (38.7-80.0); RED CELL DISTRIBUTION WIDTH 16.2 % (11.7-14.4)
[2025-03-15 09:21] LABS: EST GLOMERULAR FILTRATION RATE 26.0 ML/MIN (>=60)
[2025-03-15] MEDS: SODIUM CHLORIDE 0.9% 500ML 500 ML IV ONE ×2 (10:22→14:07)
[2025-03-15 10:26] LABS: EOSINOPHILS % (MANUAL) 1 % (0-7); LYMPHOCYTES % (MANUAL) 9 % (19-48); MONOCYTES % (MANUAL) 3 % (3.4-9.0); NEUTROPHILS % (MANUAL) 87 % (40-74); PLATELET ESTIMATE ADEQUATE; PLATELET MORPHOLOGY COMMENT NORMAL
[2025-03-15] MEDS ORDERED: NOREPINEPHRINE 8 MG/D5W 250 ML 250 ML IV SCH (11:00)
[2025-03-15] MEDS: NOREPINEPHRINE 8 MG/D5W 250 ML 250 ML IV SCH (11:39)
[2025-03-15] MEDS: MUPIROCIN 2% OINT 22 GM TUBE TOP SCH (12:00)
[2025-03-15] MEDS: SODIUM BICARBONATE 8.4% VIAL 50 ML in SODIUM CHLORIDE 0.45% 1,000 ML IV ONE (16:08)
[2025-03-15] MEDS ORDERED: NOREPINEPHRINE INJ 4 MG/4 ML ONE (16:48)
[2025-03-16] VITALS (72 sets, daily range): BP systolic 106–143; BP diastolic 53–78; PULSE 41–101; RESP 8–23; TEMP 97.2–99; O2SAT 71–100
[2025-03-16] MEDS: SODIUM CHLORIDE 0.9% 250ML 250 ML IV ONE ×2 (04:05→18:29)
[2025-03-16] MEDS: LEVOTHYROXINE SODIUM 75 MCG TAB PO SCH (06:15)
[2025-03-16] MEDS: PANTOPRAZOLE SOD 40 MG TABEC PO SCH (07:30)
[2025-03-16 08:53] LABS: BASOPHILS % 0.6 % (0.0-1.0); EOSINOPHILS % 0.9 % (0.0-6.0); LYMPHOCYTES % 9.5 % (18.0-39.1); MONOCYTES % 4.8 % (4.4-11.3); NEUTROPHILS % 82.7 % (38.7-80.0); RED CELL DISTRIBUTION WIDTH 23.8 % (11.7-14.4)
[2025-03-16 09:07] LABS: EST GLOMERULAR FILTRATION RATE 53.0 ML/MIN (>=60)
[2025-03-16] MEDS: SODIUM CHLORIDE 0.9% 1000ML 1,000 ML ONE (11:23)
[2025-03-16] MEDS: ONDANSETRON HCL INJ 2MG/ML 2ML 2 MG/ML VIAL IV PRN (11:26)
[2025-03-16] MEDS: Morphine 2mg Syringe 2 MG/ML SYR IV PRN (11:27)
[2025-03-16] MEDS: LACTATED RINGER'S 1,000 ML INJ SCH (11:40)
[2025-03-16] MEDS: SODIUM CHLORIDE 0.9% 250ML 250 ML ONE (18:38)
[2025-03-16] MEDS: BISACODYL 10 MG SUPP PR ONE (20:28)
[2025-03-17] VITALS (36 sets, daily range): BP systolic 72–156; BP diastolic 52–85; PULSE 65–126; RESP 9–33; TEMP 97.2–99.3; O2SAT 99–100
[2025-03-17] LABS: % IRON SATURATION 32 % (15-50)
[2025-03-17] MEDS: BISACODYL 10 MG SUPP PR ONE (01:08)
[2025-03-17] MEDS: SOD PHOSPHATE/SOD BIPHOSPHATE ENEMA 132 ML BTL PR ONE (03:44)
[2025-03-17 05:21] LABS: BASOPHILS % 0.5 % (0.0-1.0); EOSINOPHILS % 0.7 % (0.0-6.0); LYMPHOCYTES % 7.1 % (18.0-39.1); MONOCYTES % 5.7 % (4.4-11.3); NEUTROPHILS % 82.8 % (38.7-80.0); RED CELL DISTRIBUTION WIDTH 21.9 % (11.7-14.4)
[2025-03-17 06:19] LABS: EST GLOMERULAR FILTRATION RATE 71.0 ML/MIN (>=60)
[2025-03-17] MEDS ORDERED: HYDRALAZINE HCL 20 MG/ML VIAL IV PRN (08:45)
[2025-03-17] MEDS: METOPROLOL TARTRATE 50 MG TAB PO SCH (09:00)
[2025-03-17] MEDS: TELMISARTAN 40 MG TAB PO SCH (09:00)
[2025-03-17 09:24] LABS: BAND NEUTROPHILS % (MANUAL) 1 %; EOSINOPHILS % (MANUAL) 1 % (0-7); LYMPHOCYTES % (MANUAL) 3 % (19-48); MONOCYTES % (MANUAL) 6 % (3.4-9.0); NEUTROPHILS % (MANUAL) 89 % (40-74); PLATELET ESTIMATE ADEQUATE; PLATELET MORPHOLOGY COMMENT NORMAL; RBC MORPHOLOGY COMMENT NORMAL
[2025-03-17] MEDS ORDERED: LIDOCAINE HCL 2% LOCAL INJ 5 ML SDV VIAL INJ ONE (12:32)
[2025-03-17] MEDS ORDERED: ROCURONIUM BROMIDE 1 ML IV ONE ×4 (12:32→17:43)
[2025-03-17] MEDS ORDERED: PROPOFOL IV EMULSION 10 MG/ML 20 ML VIAL ONE (12:32)
[2025-03-17] MEDS ORDERED: FENTANYL CITRATE/PF 100MCG/2 ML INJ ONE ×2 (12:32→13:55)
[2025-03-17] MEDS ORDERED: BUPIVACAINE 0.25% 30ML SDV ONE (12:48)
[2025-03-17 13:45] LABS: LEUKOCYTE ESTERASE ,URINE TRACE (NEGATIVE); PROTEIN,URINE DIPSTICK 2+ (NEGATIVE); URINE UROBILINOGEN 1 mg/dL (0.2 - 1)
[2025-03-17 13:47] LABS: EPITHELIAL CELLS,URINE MODERATE /LPF; WBC,URINE (MAN) 0-5 /HPF (0-5)
[2025-03-17] MEDS ORDERED: PHENYLEPHRINE HCL 1% 10 MG/ML VIAL ONE (14:01)
[2025-03-17] MEDS ORDERED: EPHEDRINE SULFATE INJ 50 MG/ML VIAL ONE (16:13)
[2025-03-17] MEDS ORDERED: HYDROMORPHONE 2MG/ML ONE (17:42)
[2025-03-17] MEDS ORDERED: ONDANSETRON HCL INJ 2MG/ML 2ML 2 MG/ML VIAL IV PRN (18:15)
[2025-03-17] MEDS ORDERED: SODIUM CHLORIDE 0.9% 1000ML 1,000 ML IV SCH (18:15)
[2025-03-17] MEDS: SODIUM CHLORIDE 0.9% 250ML IRRIG IR SCH (18:15)
[2025-03-17] MEDS ORDERED: PROPOFOL IV EMULSION 10MG/ML 100 ML IV PRN (18:45)
[2025-03-17] MEDS ORDERED: FENTANYL 2000MCG/NS 250 250 ML IV PRN (18:45)
[2025-03-17 19:30] LABS: ABG PH 7.23 (7.35-7.45)
[2025-03-17 19:31] LABS: ABG BASE EXCESS -15.0 mmol/L (-2 - 3); ABG HCO3 13 mmol/L (22-26); ABG OXYGEN SATURATION 97.0 % (95-98); ABG PCO2 31 mmHg (35-45); ABG PO2 106 mmHg (80-105); ABG TCO2 14
[2025-03-17] MEDS: SODIUM CHLORIDE 0.9% 250ML 250 ML IV ONE ×2 (20:07)
[2025-03-17] MEDS: SODIUM BICARBONATE 8.4% SYRING 50 ML in SODIUM CHLORIDE 0.45% 1,000 ML IV SCH (21:08)
[2025-03-17] MEDS: ACETAMINOPHEN 1000 MG/100 ML IV PRN (21:34)
[2025-03-18] VITALS (49 sets, daily range): BP systolic -6–144; BP diastolic -15–92; PULSE 0–125; RESP 0–24; TEMP 96.8–98.4; O2SAT 0–100
[2025-03-18 00:40] LABS: BASOPHILS % 0.2 % (0.0-1.0); EOSINOPHILS % 0.0 % (0.0-6.0); LYMPHOCYTES % 3.9 % (18.0-39.1); MONOCYTES % 9.8 % (4.4-11.3); NEUTROPHILS % 81.3 % (38.7-80.0); RED CELL DISTRIBUTION WIDTH 20.2 % (11.7-14.4)
[2025-03-18 00:51] LABS: EST GLOMERULAR FILTRATION RATE 48.0 ML/MIN (>=60)
[2025-03-18] MEDS: NOREPINEPHRINE 8 MG/D5W 250 ML 250 ML IV SCH (01:30)
[2025-03-18 04:51] LABS: BAND NEUTROPHILS % (MANUAL) 12 %; LYMPHOCYTES % (MANUAL) 2 % (19-48); MONOCYTES % (MANUAL) 6 % (3.4-9.0); NEUTROPHILS % (MANUAL) 79 % (40-74); PROMYELOCYTES % (MANUAL) 1 % (0-0)
[2025-03-18 04:53] LABS: ELLIPTOCYTE, RBC MODERATE
[2025-03-18 04:54] LABS: RBC MORPHOLOGY COMMENT ABNORMAL
[2025-03-18 04:55] LABS: PLATELET MORPHOLOGY COMMENT NORMAL
[2025-03-18 04:56] LABS: PLATELET ESTIMATE ADEQUATE
[2025-03-18 06:39] LABS: BASOPHILS % 0.8 % (0.0-1.0); EOSINOPHILS % 0.2 % (0.0-6.0); LYMPHOCYTES % 11.7 % (18.0-39.1); MONOCYTES % 7.8 % (4.4-11.3); NEUTROPHILS % 63.7 % (38.7-80.0); RED CELL DISTRIBUTION WIDTH 21.0 % (11.7-14.4)
[2025-03-18 06:50] LABS: EST GLOMERULAR FILTRATION RATE 32.0 ML/MIN (>=60)
[2025-03-18] MEDS: SODIUM BICARBONATE 8.4% INJ 50 ML SYR IV STA ×4 (08:02→11:31)
[2025-03-18] MEDS: SODIUM BICARBONATE 8.4% SYRING 50 ML ONE (08:03)
[2025-03-18] MEDS: ALBUMIN 5% 0.05 GM/ML BTL IV STA (08:04)
[2025-03-18] MEDS: DEXTROSE 50% SYRINGE 50 ML IV STA (08:29)
[2025-03-18] MEDS: INSULIN REGULAR, HUMAN 100 UNIT/1 ML IV ONE (08:30)
[2025-03-18 08:37] LABS: ABG BASE EXCESS -26.0 mmol/L (-2 - 3); ABG HCO3 8 mmol/L (22-26); ABG OXYGEN SATURATION 85.0 % (95-98); ABG PCO2 40 mmHg (35-45); ABG PH 6.89 (7.35-7.45); ABG PO2 84 mmHg (80-105); ABG TCO2 9
[2025-03-18 09:29] LABS: ABG BASE EXCESS -19.0 mmol/L (-2 - 3); ABG HCO3 11 mmol/L (22-26); ABG OXYGEN SATURATION 97.0 % (95-98); ABG PCO2 37 mmHg (35-45); ABG PH 7.08 (7.35-7.45); ABG PO2 124 mmHg (80-105); ABG TCO2 12
[2025-03-18] MEDS: SODIUM CHLORIDE 0.9% 1000ML 1,000 ML ONE (09:34)
[2025-03-18] MEDS: SODIUM BICARBONATE 8.4% SYRING 150 ML in DEXTROSE 5% 1,000 ML IV SCH (09:34)
[2025-03-18] MEDS: VASOPRESSIN 60 UNIT in DEXTROSE 5% 50ML 57 ML IV SCH ×2 (10:51→11:00)
[2025-03-18] MEDS: MEROPENEM 1 GM in SODIUM CHLORIDE 0.9% 100 ML IV SCH (11:14)
[2025-03-18] MEDS ORDERED: SODIUM CHLORIDE 0.9% 1000ML 1,000 ML ONE (11:20)
[2025-03-18] MEDS: PHENYLEPHRINE 10MG/ML VIAL 40 MG in DEXTROSE 5% 250ML 246 ML IV SCH (11:38)
[2025-03-18 11:51] LABS: BAND NEUTROPHILS % (MANUAL) 2 %; EOSINOPHILS % (MANUAL) 1 % (0-7); LYMPHOCYTES % (MANUAL) 13 % (19-48); METAMYELOCYTES % (MANUAL) 3 % (0-0); MONOCYTES % (MANUAL) 10 % (3.4-9.0); MYELOCYTES % (MANUAL) 2 % (0-0); NEUTROPHILS % (MANUAL) 68 % (40-74); NUCLEATED RED BLOOD CELLS 3; REACTIVE LYMPHOCYTES 1
[2025-03-18 11:52] LABS: PLATELET ESTIMATE SLIGHTLY DECREASED; PLATELET MORPHOLOGY COMMENT NORMAL
[2025-03-18 14:44] LABS: ABG PCO2 40 mmHg (35-45); ABG PH 7.79 (7.35-7.45)
[2025-03-18 14:45] LABS: ABG BASE EXCESS > 30.0 mmol/L (-2 - 3); ABG HCO3 60 mmol/L (22-26); ABG OXYGEN SATURATION 100.0 % (95-98); ABG PO2 139 mmHg (80-105); ABG TCO2 > 50
[2025-03-18] MEDS ORDERED: CENTRAL TPN FORMULA 1 BAG IV SCH (20:00)
[2025-03-23 09:29] LABS: ABG BASE EXCESS -15.0 mmol/L (-2 - 3); ABG HCO3 13 mmol/L (22-26); ABG OXYGEN SATURATION 97.0 % (95-98); ABG PCO2 31 mmHg (35-45); ABG PH 7.23 (7.35-7.45); ABG PO2 106 mmHg (80-105); ABG TCO2 14
[2025-03-23 09:29] LABS: ABG BASE EXCESS -26.0 mmol/L (-2 - 3); ABG HCO3 8 mmol/L (22-26); ABG OXYGEN SATURATION 85.0 % (95-98); ABG PCO2 40 mmHg (35-45); ABG PH 6.89 (7.35-7.45); ABG PO2 84 mmHg (80-105); ABG TCO2 9
[2025-03-23 09:29] LABS: ABG BASE EXCESS -19.0 mmol/L (-2 - 3); ABG HCO3 11 mmol/L (22-26); ABG OXYGEN SATURATION 97.0 % (95-98); ABG PCO2 37 mmHg (35-45); ABG PH 7.08 (7.35-7.45); ABG PO2 124 mmHg (80-105); ABG TCO2 12
[2025-03-23 09:36] LABS: ABG BASE EXCESS > 30.0 mmol/L (-2 - 3); ABG HCO3 60 mmol/L (22-26); ABG OXYGEN SATURATION 100.0 % (95-98); ABG PCO2 40 mmHg (35-45); ABG PH 7.79 (7.35-7.45); ABG PO2 139 mmHg (80-105); ABG TCO2 > 50
== END 2025-03-18 15:55 | disposition expired | DRG 853 ==
LOC: ER 08:22 → ERHOLD 12:04 → ICU 12:40
PROVIDERS: ADMIT Internal Medicine; ATTEND Internal Medicine
PROC: 3E033XZ Introduction of Vasopressor into Peripheral Vein, Percutaneous Approach (ICD-10-PCS; 2025-03-15)
PROC: 30233N1 Transfusion of Nonautologous Red Blood Cells into Peripheral Vein, Percutaneous Approach (ICD-10-PCS; 2025-03-15)
PROC: 07TP0ZZ Resection of Spleen, Open Approach (ICD-10-PCS; 2025-03-17)
PROC: 0DB60ZZ Excision of Stomach, Open Approach (ICD-10-PCS; 2025-03-17)
PROC: 0DBA0ZZ Excision of Jejunum, Open Approach (ICD-10-PCS; 2025-03-17)
PROC: 0F9G0ZZ Drainage of Pancreas, Open Approach (ICD-10-PCS; 2025-03-17)
PROC: 0DNU0ZZ Release Omentum, Open Approach (ICD-10-PCS; 2025-03-17)
PROC: 02HV33Z Insertion of Infusion Device into Superior Vena Cava, Percutaneous Approach (ICD-10-PCS; principal; 2025-03-17 12:48)
PROC: 4A133R1 Monitoring of Arterial Saturation, Peripheral, Percutaneous Approach (ICD-10-PCS; 2025-03-18)
PROC: 04HY32Z Insertion of Monitoring Device into Lower Artery, Percutaneous Approach (ICD-10-PCS; 2025-03-18)
DX: A41.9 Sepsis, unspecified organism (principal); K28.6 Chronic or unspecified gastrojejunal ulcer with both hemorrhage and perforation; R65.21 Severe sepsis with septic shock; K85.90 Acute pancreatitis without necrosis or infection, unspecified; K56.699 Other intestinal obstruction unspecified as to partial versus complete obstruction; I96 Gangrene, not elsewhere classified; E87.20 Acidosis, unspecified; E44.0 Moderate protein-calorie malnutrition; D62 Acute posthemorrhagic anemia; K95.89 Other complications of other bariatric procedure; N17.9 Acute kidney failure, unspecified; R57.1 Hypovolemic shock; R68.0 Hypothermia, not associated with low environmental temperature; K56.41 Fecal impaction; I10 Essential (primary) hypertension; E86.0 Dehydration; D53.9 Nutritional anemia, unspecified; E03.9 Hypothyroidism, unspecified; E78.00 Pure hypercholesterolemia, unspecified; H91.93 Unspecified hearing loss, bilateral; K21.9 Gastro-esophageal reflux disease without esophagitis; F41.9 Anxiety disorder, unspecified; F32.A Depression, unspecified; M19.90 Unspecified osteoarthritis, unspecified site; Z68.20 Body mass index [BMI] 20.0-20.9, adult; Z90.5 Acquired absence of kidney; Z85.41 Personal history of malignant neoplasm of cervix uteri; Z90.49 Acquired absence of other specified parts of digestive tract; Z88.5 Allergy status to narcotic agent; Z82.49 Family history of ischemic heart disease and other diseases of the circulatory system
CPT/HCPCS: 36415; 36569; 36600; 71045; 74176; 76770; 80048; 80053; 81001; 82550; 82607; 82746; 82805; 83540; 84439; 84443; 84466; 84484; 85025; 85045; 86850; 86900; 86920; 88304; 88305; 88307; 88342; 92950; 93306; 94002; 94003; 94799; 99252; 99284; J0694; J1171; J1885; J2003; J2185; J2270; J2371; J2405; J2470; J2543; J7030; J7040; J7050; J7070; J7799; P9016